=== PATIENT | male | born 1980 | race Caucasian/White ===

== ENCOUNTER 2017-11-10 09:59 | Emergency (ER) | payer OTHER ==
[~2017-11-10] VITALS: Ht 180.3 cm; Wt 82.0 kg
[~2017-11-10 09:59] MED LIST: IBUP-238 PO; TYLE3 PO
[2017-11-10 10:17] VITALS: BP 133/72; PULSE 62; RESP 15; TEMP 98.4; O2SAT 98
[2017-11-10 11:30] VITALS: BP 141/86; PULSE 64; RESP 19; O2SAT 98
[2017-11-10] MEDS ORDERED: ATOR10TA15 PO (11:43)
[2017-11-10] MEDS ORDERED: ESCI5TAB PO (11:43)
[2017-11-10 11:49] VITALS: O2SAT 99
--- NOTE | 2017-11-10 11:52 | PD ---
HPI Chief Complaint: Abnormal Results Time Seen by Provider: 11:39 Travel History International Travel<30 days: No Contact w/Intl Traveler<30days: No Traveled to known affect area: No History of Present Illness HPI This patient complains of abdominal pain. Location is left upper quadrant. Duration 3 days. Severity is moderate. He has no nausea or vomiting or diarrhea or fever. His primary physician sent him here for evaluation. He had an EKG in the office which concerned him. Patient has not had any chest pain or pressure or tightness or heaviness. He has no shortness of breath. He says at one point his left upper quadrant pain radiated up toward his left shoulder but is not having any chest symptoms. No exacerbating factors. No alleviating factors. He denies history of cardiac disease. PFSH Past Medical History Depression: Yes Cardiovascular Problems: Yes High Cholesterol: Yes Diminished Hearing: No Tetanus Vaccination: < 5 Years Influenza Vaccination: Yes Past Surgical History Surgical History: No Previous Surgery Social History Alcohol Use: Yes ((6) 2-3 x a week) Tobacco Use: No Substance Use: No Allergies-Medications (Allergen,Severity, Reaction): Coded Allergies: No Known Allergies (Verified Adverse Reaction, Unknown, 11/10/17) Reported Meds & Prescriptions Reported Meds & Active Scripts Active Reported Atorvastatin (Atorvastatin Calcium) 10 Mg Tab 10 Mg PO HS Escitalopram (Escitalopram Oxalate) 5 Mg Tab 5 Mg PO DAILY Review of Systems General / Constitutional: No: Fever Eyes: No: Visual changes HENT: No: Headaches Cardiovascular: No: Chest Pain or Discomfort Respiratory: No: Shortness of Breath Gastrointestinal: Positive: Abdominal Pain Genitourinary: No: Dysuria Musculoskeletal: No: Pain Skin: No Rash Neurologic: No: Weakness Psychiatric: No: Depression Endocrine: No: Polydipsia Hematologic/Lymphatic: No: Easy Bruising Physical Exam Narrative GENERAL: Well-nourished, well-developed patient in no apparent distress. SKIN: Focused skin assessment reveals no rash and nodules. Skin is Warm and dry. HEAD: Atraumatic. Normocephalic. EYES: Pupils equal and round. No scleral icterus. No injection or drainage. ENT: No nasal bleeding or discharge. Mucous membranes pink and moist. NECK: Trachea midline. No JVD. CARDIOVASCULAR: Regular rate and rhythm. No murmur appreciated. RESPIRATORY: No accessory muscle use. Clear to auscultation. Breath sounds equal bilaterally. GASTROINTESTINAL: Abdomen soft, non-tender, nondistended. Hepatic and splenic margins not palpable. MUSCULOSKELETAL: No obvious deformities. No clubbing. No cyanosis. No edema. NEUROLOGICAL: Awake and alert. No obvious cranial nerve deficits. Motor grossly within normal limits. Normal speech. PSYCHIATRIC: Appropriate mood and affect; insight and judgment normal. Data Data Last Documented VS Vital Signs Date Time Temp Pulse Resp B/P (MAP) Pulse Ox O2 Delivery O2 Flow Rate FiO2 11/10/17 11:49 99 Room Air 11/10/17 11:46 61 20 11/10/17 10:17 98.4 Orders Orders Electrocardiogram (11/10/17 ) Complete Blood Count With Diff (11/10/17 11:47) Comprehensive Metabolic Panel (11/10/17 11:47) Lipase (11/10/17 11:47) Iv Access Insert/Monitor (11/10/17 11:47) Ecg Monitoring (11/10/17 11:47) Oximetry (11/10/17 11:47) NPO (11/10/17 11:47) Sodium Chloride 0.9% Flush (Ns Flush) (11/10/17 12:00) Electrocardiogram (11/10/17 11:47) Ckmb (Isoenzyme) Profile (11/10/17 11:47) Troponin I (11/10/17 11:47) Labs Laboratory Tests Test 11/10/17 11:55 White Blood Count 5.4 TH/MM3 Red Blood Count 5.08 MIL/MM3 Hemoglobin 15.3 GM/DL Hematocrit 43.2 % Mean Corpuscular Volume 85.1 FL Mean Corpuscular Hemoglobin 30.2 PG Mean Corpuscular Hemoglobin Concent 35.5 % Red Cell Distribution Width 12.5 % Platelet Count 235 TH/MM3 Mean Platelet Volume 7.6 FL Neutrophils (%) (Auto) 63.2 % Lymphocytes (%) (Auto) 23.7 % Monocytes (%) (Auto) 10.0 % Eosinophils (%) (Auto) 2.7 % Basophils (%) (Auto) 0.4 % Neutrophils # (Auto) 3.4 TH/MM3 Lymphocytes # (Auto) 1.3 TH/MM3 Monocytes # (Auto) 0.5 TH/MM3 Eosinophils # (Auto) 0.1 TH/MM3 Basophils # (Auto) 0.0 TH/MM3 CBC Comment DIFF FINAL Differential Comment Blood Urea Nitrogen 12 MG/DL Creatinine 0.89 MG/DL Random Glucose 76 MG/DL Total Protein 7.5 GM/DL Albumin 4.2 GM/DL Calcium Level 9.2 MG/DL Alkaline Phosphatase 43 U/L Aspartate Amino Transf (AST/SGOT) 21 U/L Alanine Aminotransferase (ALT/SGPT) 44 U/L Total Bilirubin 0.5 MG/DL Sodium Level 141 MEQ/L Potassium Level 4.2 MEQ/L Chloride Level 106 MEQ/L Carbon Dioxide Level 27.2 MEQ/L Anion Gap 8 MEQ/L Estimat Glomerular Filtration Rate 95 ML/MIN Total Creatine Kinase 64 U/L Troponin I LESS THAN 0.02 NG/ML Lipase 97 U/L MDM Medical Decision Making Medical Screen Exam Complete: Yes Emergency Medical Condition: Yes Medical Record Reviewed: Yes Differential Diagnosis Irritable bowel syndrome, gastroparesis, pericarditis Narrative Course I have reviewed the patient's electronic medical record. Reviewed his physicians note. I reviewed his EKG from the office I reviewed our EKG which shows sinus rhythm. There is no concerning ST elevations. There is questionable half a box elevation in several leads IV placed and labs sent Extended cardiac monitoring reveals sinus rhythm without ectopy Abdomen is soft and benign and nontender Cardiac enzymes are normal CBC and metabolic studies are normal I reviewed with Dr. Maritnez who saw this patient today. He recommends a discharge home. I also agree with that. I do not see any indication for hospital stay. He has had no symptoms attributable to ACS. He did not have any chest pain. He feels fine and wants to go home. Diagnosis Primary Impression: Abdominal pain Qualified Codes: R10.12 - Left upper quadrant pain Additional Instructions: The patient was advised to follow up with their physician and return if they worsen. Med/Other Pt SpecificInfo: Other Disposition: 01 DISCHARGE HOME Condition: Stable Juan Minaya MD November 10, 2017 11:52
[2017-11-10] MEDS ORDERED: SODIUM CHLORIDE 0.9% FLUSH 10 ML FLUSH IV FLUSH PRN (12:00)
[2017-11-10 12:02] LABS: AUTOMATED NEUTROPHIL # 3.4 TH/MM3 (1.8-7.7); BASOPHIL % 0.4 % (0.0-2.0); EOSINOPHIL # 0.1 TH/MM3 (0-0.4); EOSINOPHIL % 2.7 % (0.0-4.0); HEMATOCRIT 43.2 % (39.0-51.0); HEMOGLOBIN 15.3 GM/DL (13.0-17.0); LYMPH % 23.7 % (9.0-44.0); LYMPHOCYTE # 1.3 TH/MM3 (1.0-4.8); MEAN CELL VOLUME 85.1 FL (80.0-100.0); MEAN CORPUSCULAR HEMOGLOBIN 30.2 PG (27.0-34.0); MEAN CORPUSCULAR HGB CONC 35.5 % (32.0-36.0); MEAN PLATELET VOLUME 7.6 FL (7.0-11.0); MONOCYTE # 0.5 TH/MM3 (0-0.9); NEUT % 63.2 % (16.0-70.0); PLATELET COUNT 235 TH/MM3 (150-450); RED BLOOD COUNT 5.08 MIL/MM3 (4.50-5.90); RED CELL DISTRIBUTION WIDTH 12.5 % (11.6-17.2); WHITE BLOOD COUNT 5.4 TH/MM3 (4.0-11.0)
[2017-11-10 12:30] VITALS: BP 117/78; PULSE 62; RESP 18; O2SAT 98
[2017-11-10 12:53] LABS: ALBUMIN 4.2 GM/DL (3.4-5.0); BICARBONATE 27.2 MEQ/L (21.0-32.0); BLOOD UREA NITROGEN 12 MG/DL (7-18); CALCIUM 9.2 MG/DL (8.5-10.1); CHLORIDE 106 MEQ/L (98-107); CREATININE 0.89 MG/DL (0.60-1.30); GLOMERULAR FILTRATION RATE 95 ML/MIN (>89); GLUCOSE,RANDOM 76 MG/DL (74-106); SODIUM (NA) 141 MEQ/L (136-145)
[2017-11-10 12:54] LABS: AST (GOT) 21 U/L (15-37)
[2017-11-10 12:59] LABS: ALKALINE PHOSPHATASE 43 U/L (45-117); ALT (GPT) 44 U/L (12-78); TOTAL PROTEIN 7.5 GM/DL (6.4-8.2); TROPONIN I LESS THAN 0.02 NG/ML (0.02-0.05)
[2017-11-10 13:06] LABS: TOTAL BILIRUBIN ADULT 0.5 MG/DL (0.2-1.0)
[2017-11-10 14:00] VITALS: BP 122/82; PULSE 60; RESP 17; O2SAT 99
[2017-11-10 15:00] VITALS: BP 124/80; PULSE 74; RESP 19; O2SAT 98
--- NOTE | 2017-11-10 19:09 | EKG ---
Date Performed: 11/10/2017 Time Performed: 10:24:56 PTAGE: 37 years EKG: SINUS BRADYCARDIA BORDERLINE ECG NO PREVIOUS TRACING DOCTOR: Bob Thornton Interpretating Date/Time 11/10/2017 19:07:41
== END 2017-11-10 15:14 | disposition home or self-care (01) ==
LOC: NEPD 09:59
DX: R10.12 Left upper quadrant pain (principal); R00.1 Bradycardia, unspecified; F32.9 Major depressive disorder, single episode, unspecified; E78.00 Pure hypercholesterolemia, unspecified; Z79.899 Other long term (current) drug therapy
CPT/HCPCS: 80053; 82550; 83690; 84484; 85025; 93005; 99284